=== PATIENT | male | born 1980 | race Two or more races ===

== ENCOUNTER 2019-06-09 16:03 | Emergency (ER) | payer SELFPAY ==
[~2019-06-09] VITALS: Ht 185.4 cm; Wt 102.1 kg
[2019-06-09 16:18] VITALS: BP 144/77
--- NOTE | 2019-06-09 17:04 | NUR ---
PT. VERBALIZED UNDERSTANDING OF AFTERCARE INSTRUCTIONS.Patient discharged to home in stable condition. Written and verbal after care instructions given. Patient verbalizes understanding of instruction.
== END 2019-06-09 17:06 | disposition home or self-care (01) ==
LOC: ER 16:03
DX: I89.1 Lymphangitis (principal); R50.9 Fever, unspecified; R53.81 Other malaise; R19.7 Diarrhea, unspecified